=== PATIENT | female | born 1960 | race Caucasian/White ===

== ENCOUNTER 2019-09-12 16:44 | Inpatient (IN) | payer MEDICAID ==
[~2019-09-12] VITALS: Ht 152.4 cm; Wt 86.2 kg
[2019-09-12] MEDS ORDERED: ABILIFY30 MG PO (17:13)
[2019-09-12] MEDS ORDERED: CEPACOL SORE T1 EAC2 MM (17:14)
[2019-09-12] MEDS ORDERED: CYCLOBENZAPRINE10 MG PO (17:16)
[2019-09-12] MEDS ORDERED: CYMBALTA60 MG PO (17:17)
[2019-09-12] MEDS ORDERED: DEPAKOTE DR500 MG PO (17:18)
[2019-09-12] MEDS ORDERED: FLONASE ALLERG9.9 ML NAS (17:19)
[2019-09-12] MEDS ORDERED: NEURONTIN600 MG PO (17:21)
[2019-09-12] MEDS ORDERED: GEODON20 M1 IM (17:22)
[2019-09-12] MEDS ORDERED: HALDOL5 MG PO ×2 (17:24→17:49)
[2019-09-12] MEDS ORDERED: CLARITIN10 MG PO (17:25)
[2019-09-12] MEDS ORDERED: PEPCID20 MG PO (17:25)
[2019-09-12] MEDS ORDERED: TUMS200 MG PO (17:27)
[2019-09-12] MEDS ORDERED: MULTI-VITAMIN1 EACH PO (17:28)
[2019-09-12] MEDS ORDERED: LEVOTHYROXINE175 MCG PO (17:29)
[2019-09-12] MEDS ORDERED: [UNRECOGNIZED DRUG - OTHER] NAS (17:30)
[2019-09-12] MEDS ORDERED: ROBITUSSIN-DM 110 ML PO (17:31)
[2019-09-12] MEDS ORDERED: PHENERGAN25 M3 PO (17:32)
[2019-09-12] MEDS ORDERED: PROAIR HFA8.5 GM INH (17:33)
[2019-09-12] MEDS ORDERED: PHENERGAN25 MG/1 ML IJ (17:33)
[2019-09-12] MEDS ORDERED: VISTARIL50 MG PO ×2 (17:34→17:35)
[2019-09-12] MEDS ORDERED: VITAMIN D31250 MC1 PO (17:37)
[2019-09-12] MEDS ORDERED: XARELTO10 MG PO (17:37)
[2019-09-12 20:29] VITALS: BP 142/76
[2019-09-13 06:09] LABS: BASO % 0.6 % (0.0-1.0); EOS # 0.1 10*3/uL (0.0-0.4); EOS % 1.9 % (1.0-4.0); HEMATOCRIT 40.6 % (37.0-47.0); LYMPH # 2.9 10*3/uL (1.3-4.4); LYMPH % 56.3 % (27.0-41.0); MEAN CELL VOLUME 90.2 fl (81.0-99.0); MEAN CORPUSCULAR HGB 28.4 pg (27.0-31.0); MEAN CORPUSCULAR HGB CONC 31.5 g/dl (33.0-37.0); MEAN PLATELET VOLUME 8.6 fl (9.6-12.3); MONO # 0.8 10*3/uL (0.1-1.0); MONO % 15.5 % (3.0-9.0); NEUT # 1.3 10*3/uL (2.3-7.9); NEUT % 25.3 % (47.0-73.0); PLATELET COUNT AUTOMATED 216 10*3/uL (130-400); RED CELL DISTRI WIDTH 13.7 % (0-14.5); WHITE BLOOD COUNT 5.2 10*3/uL (4.8-10.8)
[2019-09-13 06:39] LABS: ALBUMIN 2.5 gm/dl (3.1-4.5); ALKALINE PHOSPHATASE 54 U/L (45-117); BUN 13 mg/dl (7-24); CHLORIDE 108 mmol/L (98-107); CHOLESTEROL 157 mg/dL (<200); CREATININE 0.81 mg/dL (0.55-1.02); HDL CHOLESTEROL 39 mg/dl (40-60); LDL CHOLESTEROL 92 mg/dL (9-159); POTASSIUM 3.3 mmol/L (3.5-5.1); SGOT/AST 27 IU/L (3-35); SGPT/ALT 35 U/L (12-78); SODIUM 141 mmol/L (136-145); TOTAL PROTEIN 6.1 gm/dL (6.4-8.2); TRIGLYCERIDES 129 mg/dl (<150); VLDL CHOLESTEROL 26 mg/dL (6-40)
[2019-09-13 06:48] LABS: VALPROIC ACID (DEPAKENE) 99.4 ug/ml (50-100)
[2019-09-13 07:43] VITALS: BP 121/74
[2019-09-13 07:58] LABS: VITAMIN D, 25-HYDROXY 60.6 ng/mL (30-100)
[2019-09-13 19:47] VITALS: BP 128/70
[2019-09-13 21:52] LABS: CLARITY CLEAR (CLEAR); COLOR YELLOW (YELLOW)
[2019-09-13 21:53] LABS: BILIRUBIN NEGATIVE (NEGATIVE); BLOOD NEGATIVE (NEGATIVE); GLUCOSE NEGATIVE (NEGATIVE); KETONE NEGATIVE (NEGATIVE); LEUKO ESTERASE NEGATIVE (NEGATIVE); NITRITE NEGATIVE (NEGATIVE); PH 6.5 (5.0-9.0); SPECIFIC GRAVITY 1.005 (1.005-1.030)
[2019-09-14 07:45] VITALS: BP 126/84
[2019-09-14 20:00] VITALS: BP 118/70
[2019-09-15 07:58] VITALS: BP 117/73
[2019-09-15 20:00] VITALS: BP 128/72
[2019-09-16 08:00] VITALS: BP 122/76
[2019-09-16 20:00] VITALS: BP 123/64
[2019-09-17 07:52] VITALS: BP 112/64
[2019-09-17 20:00] VITALS: BP 135/69
[2019-09-18 08:00] VITALS: BP 137/81
[2019-09-18 20:00] VITALS: BP 111/86
[2019-09-19 07:34] VITALS: BP 114/64
[2019-09-19 19:07] VITALS: BP 136/70
[2019-09-20 07:45] VITALS: BP 132/83
[2019-09-20 19:01] VITALS: BP 145/61
[2019-09-21 07:36] VITALS: BP 141/70
[2019-09-21 19:41] VITALS: BP 134/67
[2019-09-22 08:00] VITALS: BP 119/65
[2019-09-22 19:07] VITALS: BP 104/54
[2019-09-23 07:57] VITALS: BP 122/60
[2019-09-23] MEDS ORDERED: ZIPRASIDONE HCL80 M1 PO (10:04)
[2019-09-23] MEDS ORDERED: CLONAZEPAM1 MG PO (10:04)
[2019-09-23 19:10] LABS: NEURONTIN (GABAPENTIN) 18.1 ug/mL (4.0-16.0)
== END 2019-09-23 13:04 | DRG 750 ==
LOC: 3N 16:44
PROVIDERS: Counselor Professional; ADMIT Psychiatry & Neurology Psychiatry
DX: F25.0 Schizoaffective disorder, bipolar type (principal); F23 Brief psychotic disorder; K21.9 Gastro-esophageal reflux disease without esophagitis; E03.9 Hypothyroidism, unspecified; F41.9 Anxiety disorder, unspecified; M62.81 Muscle weakness (generalized); F34.9 Persistent mood [affective] disorder, unspecified; G60.3 Idiopathic progressive neuropathy; E11.51 Type 2 diabetes mellitus with diabetic peripheral angiopathy without gangrene; E11.69 Type 2 diabetes mellitus with other specified complication; I82.402 Acute embolism and thrombosis of unspecified deep veins of left lower extremity; E78.5 Hyperlipidemia, unspecified; Z90.49 Acquired absence of other specified parts of digestive tract; Z82.49 Family history of ischemic heart disease and other diseases of the circulatory system; Z88.1 Allergy status to other antibiotic agents; Z88.8 Allergy status to other drugs, medicaments and biological substances; Z83.3 Family history of diabetes mellitus; Z79.899 Other long term (current) drug therapy; R26.2 Difficulty in walking, not elsewhere classified; Z20.828 Contact with and (suspected) exposure to other viral communicable diseases